=== PATIENT | female | born 1985 | race Caucasian/White ===

== ENCOUNTER 2023-11-20 15:36 | Emergency (ER) | payer OTHER | END 2023-11-20 16:49 | disposition home or self-care (01) | LOC: MADERS 15:36 | DX: L03.115 Cellulitis of right lower limb (principal); E11.9 Type 2 diabetes mellitus without complications; E03.9 Hypothyroidism, unspecified; Z79.899 Other long term (current) drug therapy; Z79.84 Long term (current) use of oral hypoglycemic drugs | CPT/HCPCS: 99283 ==

== ENCOUNTER 2024-01-06 09:41 | Emergency (ER) | payer OTHER | END 2024-01-06 11:08 | disposition home or self-care (01) | LOC: MADERS 09:41 | DX: B34.9 Viral infection, unspecified (principal); H92.01 Otalgia, right ear; E11.9 Type 2 diabetes mellitus without complications; E03.9 Hypothyroidism, unspecified; Z79.84 Long term (current) use of oral hypoglycemic drugs | CPT/HCPCS: 71046; 99283 ==

== ENCOUNTER 2024-03-08 12:30 | Emergency (ER) | payer OTHER ==
[2024-03-08] MEDS ORDERED: Ipratropium/Albuterol 3 ML NEB ONE (12:48)
== END 2024-03-08 13:07 | disposition home or self-care (01) ==
LOC: MADERS 12:30
DX: J45.901 Unspecified asthma with (acute) exacerbation (principal); E11.9 Type 2 diabetes mellitus without complications; E03.9 Hypothyroidism, unspecified
CPT/HCPCS: J7620

== ENCOUNTER 2024-03-11 18:47 | Emergency (ER) | payer OTHER | END 2024-03-11 20:10 | disposition home or self-care (01) | LOC: MADERS 18:47 | DX: J06.9 Acute upper respiratory infection, unspecified (principal); E11.9 Type 2 diabetes mellitus without complications | CPT/HCPCS: 87081; 87430; 99283 ==

== ENCOUNTER 2024-03-27 17:42 | Emergency (ER) | payer MEDICAID, OTHER | END 2024-03-27 18:46 | disposition home or self-care (01) | LOC: MADERS 17:42 | DX: J20.9 Acute bronchitis, unspecified (principal); E11.9 Type 2 diabetes mellitus without complications | CPT/HCPCS: 71045 ==

== ENCOUNTER 2025-08-13 13:31 | Emergency (ER) | payer MEDICAID ==
[2025-08-13] MEDS ORDERED: cefTRIAXone (ROCEPHIN) 500 MG VIAL ONE (14:12)
[2025-08-13 14:31] LABS: #Basophils 0.1 thou/uL (0.0-0.2); #Eosinophils 0.2 thou/uL (0.0-0.7); #Lymphocytes 4.0 thou/uL (1.20-3.40); #Monocytes 1.0 thou/uL (0.11-0.59); #Neutrophils 6.0 thou/uL (1.40-6.50); %Basophils 0.9 % (0.0-1.0); %Eosinophils 1.4 % (0.0-10.0); %Lymphocytes 35.8 % (21.0-51.0); %Monocytes 8.7 % (0.0-10.0); %Neutrophils 53.1 % (42.0-75.0); Anisocytosis SLIGHT = 6-15 cells (100X) (0-5/hpf); Hematocrit 38.2 % (36.0-47.0); Hemoglobin 11.8 g/dL (12.0-16.0); MDiff Complete? YES; Mean Corpuscular Hemoglobin 22.2 pg (27.0-31.0); Mean Corpuscular Volume 72.0 fl (78.0-98.0); Microcytosis SLIGHT = 6-15 cells (100X) (0-5/hpf); Platelet Adequacy Comment Appears Increased; Platelet Count 509 10x3/uL (130-400); Red Blood Cell (RBC) Count 5.31 mill/uL (4.20-5.40); White Blood Cell (WBC) Count 11.3 10x3/uL (4.8-10.8)
[2025-08-13 14:33] LABS: MONO NEGATIVE CONTROL ZONE White (Negative) (White); MONO POSITIVE CONTROL Pink Line (Positive) (PINK/RED); Mononucleosis NEGATIVE (NEGATIVE)
[2025-08-13 14:38] LABS: ALT (SGPT) 30 U/L (Less than 34); AST (SGOT) 37 U/L (11-34); Albumin 4.1 g/dL (3.1-4.5); Alkaline Phosphatase 82 U/L (40-110); Anion Gap 14 mmol/L (10-20); BUN (Urea Nitrogen) 10 mg/dL (7.0-18.7); Bilirubin, Total 0.3 mg/dL (0.3-1.2); Calc. Creatinine Clearance 0 mL/min (70-130); Calcium 8.7 mg/dL (7.8-10.44); Carbon Dioxide 21 mmol/L (22-29); Chloride 109 mmol/L (98-107); Globulin 3.6 g/dL (2.4-3.5); Glucose 103 mg/dL (70-105); Potassium 3.2 mmol/L (3.5-5.1); Sodium 141 mmol/L (136-145)
[2025-08-13 15:16] LABS: Glucose, Urine (Dipstick) Negative (Negative); Leukocyte Trace (Negative); Protein, Urine (Dipstick) Negative (Neg-Trace); Specific Gravity, Urine 1.025 (1.005-1.030)
[2025-08-13 15:19] LABS: Pregnancy Test - Urine (BHCG) Negative (Negative); Pregu Control Background? CLEAR/WHITE (CLR/WHITE); Pregu Control Bar Appear? YES (CONTROL BAR)
[2025-08-13 15:26] LABS: Bacteria/HPF 2+ HPF (None Seen); CAUTI Indications for Culture Dysuria,urgency,freq; RBC/HPF 0-3 HPF (0-3)
[2025-08-13 15:27] LABS: Urine Culture Reflex No No
[2025-08-13 23:26] LABS: HIV (1/2) Antibody/Antigen NONREACTIVE (NonReactive); HIV 1/2 INDEX 0.06 S/CO (<1.00)
[2025-08-14 09:55] LABS: Chlamydia by PCR, Vaginal Swab Not Detected (NotDetected); GC by PCR, Vaginal Swab Not Detected (NotDetected)
== END 2025-08-13 15:40 | disposition home or self-care (01) ==
LOC: MADERS 13:31
DX: K52.9 Noninfective gastroenteritis and colitis, unspecified (principal); N39.0 Urinary tract infection, site not specified; E87.6 Hypokalemia; A59.01 Trichomonal vulvovaginitis; E66.9 Obesity, unspecified; E11.9 Type 2 diabetes mellitus without complications; K51.90 Ulcerative colitis, unspecified, without complications
CPT/HCPCS: 36415; 80053; 81001; 81025; 85025; 86308; 87086; 87389; 87480; 87491; 87510; 87591; 87660; 96372; 99284; J0696; Q0162